=== PATIENT | male | born 1960 | race Hispanic/Latino ===

== ENCOUNTER 2016-12-01 08:23 | Day surgery (SDC) | payer OTHER ==
[2016-11-26 12:19] VITALS: BMI 33.0
[2016-12-01] MEDS ORDERED: ceFAZolin 1 gm FROZEN Premix 0 ML IVPB ONE (10:28)
[2016-12-01] MEDS ORDERED: ceFAZolin IV 2 gm in Dextrose 50 ML IVPB ONE (11:17)
[2016-12-01] MEDS ORDERED: Lactated Ringer's 1,000 ML IV ONE (11:25)
[2016-12-01] MEDS ORDERED: Midazolam 2 MG/2 ML VIAL ONE (11:26)
[2016-12-01] MEDS ORDERED: Propofol 10 mg/ml Inj (20 ML) ONE ×2 (11:26→11:46)
[2016-12-01] MEDS ORDERED: Lidocaine 1% Inj (20ml) ONE (11:39)
[2016-12-01] MEDS: Bupivacaine HCl 0.25% PF (10 ml) Inj ONE ×2 (11:46→11:59)
[2016-12-01] MEDS ORDERED: HYDROmorphone 0.5 mg/0.5 ml ISec IVP PRN (12:09)
[2016-12-01] MEDS ORDERED: Oxycodone/Acetaminophen 5/325 mg Tab PO PRN (13:23)
--- NOTE | 2016-12-01 13:27 | OP ---
PROCEDURE DATE: 12/01/2016 PREOPERATIVE DIAGNOSIS: Abdominal wall mass. POSTOPERATIVE DIAGNOSIS: Abdominal wall mass. PROCEDURE PERFORMED: Wide and deep excision of 5 cm abdominal wall mass with adjacent tissue transfe r closure. SURGEON: Yousuf Sainz MD ANESTHESIA: General. ESTIMATED BLOOD LOSS: 30 mL. POSTOPERATIVE CONDITION: Stable. INDICATIONS FOR SURGERY: This is a 56-year-old male, status post umbilical hernia repair 2 years ago , who now has developed inflammatory masses of his umbilicus which occasionally drain fluid. He has been treated with simple excision in the past, but they have returned. He now will undergo wide and deep excision of the masses. GROSS FINDINGS: The masses were noted to almost fill the umbilicus. An umbilectomy was performed an d underlying was what appeared to be remnants of suture granuloma and suture material was removed. PROCEDURE: The patient taken to the operating room. General anesthesia administered and the abdomen was prepped and draped. Elliptical incision was made surrounding the umbilicus. It was dissected f ree to the fascial layer and removed. The underlying suture material was also dissected free and rem [place]. The resulting hernia was repaired with heavy Monocryl. A preperitoneal blood vessel which was bleeding was repaired and the wound was irrigated with copious amounts of saline solution. Generous tissue flaps were raised and a greater than 30 square cm adjacent tissue transfer closure was perfor med with multiple layers of Monocryl, subcuticular Monocryl, and skin clips. The patient tolerated p rocedure well, returned to recovery room in stable condition. Yousuf Sainz MD cc: [id number] TT: 12/01/2016 13:27:20 en
[2016-12-01 13:29] VITALS: RESP 18
[2016-12-01 13:55] VITALS: BP 148/84; PULSE 76; TEMP 98; O2SAT 98
== END 2016-12-01 13:50 | disposition home or self-care (01) ==
LOC: C.SDS 08:23
PROVIDERS: ATTEND Surgery
DX: L02.211 Cutaneous abscess of abdominal wall (principal); T81.89XA Other complications of procedures, not elsewhere classified, initial encounter
CPT/HCPCS: 49250; 88307; 88342; J0690; J1170; J1885; J2250; J2405; J2704; J3010; J7120

== ENCOUNTER 2016-12-02 18:47 | Emergency (ER) | payer OTHER ==
[2016-12-02 18:47] VITALS: BMI 33.0
--- NOTE | 2016-12-02 19:54 | C.PDOC ---
History Of Present Illness 56 y/o male presents to ED for wound check s/p hernia repair yesterday by Dr. Sainz. Patient presents with c/o bleeding and some discomfort at surgical site. Denies fever, chills, nausea, vomiting. Time Seen by Provider: 12/02/16 19:53 Chief Complaint (Nursing): Abnormal Skin Integrity History Per: Patient History/Exam Limitations: no limitations Onset/Duration Of Symptoms: Days Current Symptoms Are (Timing): Still Present Location Of Injury: Anterior: Abdomen Quality Of Symptoms: Painful, Draining Pain Scale Rating Of: 4 Recent travel outside of the [place]: No Past Medical History Reviewed: Historical Data, Nursing Documentation, Vital Signs Vital Signs: Last Vital Signs Temp 98.8 F 12/02/16 19:22 Pulse 72 12/02/16 19:22 Resp 20 12/02/16 19:22 BP 172/100 H 12/02/16 19:22 Pulse Ox 97 12/02/16 20:22 - Medical History PMH: Colonic Polyps, Depression, Hypercholesterolemia Surgical History: Endoscopy - [facility] Procedures ABD WALL KATY REPAIR NEC (02/01/15) OTH LYSIS-PERITONEAL ADHES (02/01/15) Family History: States: Unknown Family Hx - Social History Hx Alcohol Use: Yes Hx Substance Use: No - Immunization History Hx Tetanus Toxoid Vaccination: No Hx Influenza Vaccination: No Hx Pneumococcal Vaccination: No Review Of Systems Constitutional: Negative for: Fever, Chills Gastrointestinal: Negative for: Nausea, Vomiting, Diarrhea Skin: Positive for: Other (drainage/discomfort at surgical site ). Negative for : Rash Physical Exam - Physical Exam Appears: Non-toxic, No Acute Distress Skin: Warm, Dry Chest: Symmetrical Cardiovascular: Rhythm Regular Respiratory: No Rales, No Rhonchi, No Wheezing Gastrointestinal/Abdominal: Soft, No Distention, No Guarding, No Rebound, Other (jeanie in place, good bowel sounds) Extremity: Normal ROM, Capillary Refill (< 2 sec. ) Neurological/Psych: Oriented x3, Normal Speech, Normal Cognition ED Course And Treatment - Laboratory Results Result Diagrams: 12/02/16 21:43 12/02/16 21:43 O2 Sat by Pulse Oximetry: 97 Pulse Ox Interpretation: Normal Progress Note: spoke with dr sainz. placed pressure dressing with gelfoam. will see the pt in the office in am. no bleeding seen afte the wound pressure dressing applied Disposition Discussed With : Yousuf Sainz Comment: will see the pt in his office on 12/03/16 10AM Doctor Will See Patient In The: Office Counseled Patient/Family Regarding: Studies Performed, Diagnosis, Need For Followup - Disposition Disposition: HOME/ ROUTINE Disposition Time: 19:54 Condition: FAIR Instructions: Acute Wound Care (ED) - Clinical Impression Clinical Impression: Visit for wound check - Scribe Statement The provider has reviewed the documentation as recorded by the Christine [place] Provider Scribe Attestation: All medical record entries made by the Christine were at my direction and personally dictated by me. I have reviewed the chart and agree that the record accurately reflects my personal performance of the history, physical exam, medical decision making, and the department course for this patient. I have also personally directed, reviewed, and agree with the discharge instructions and disposition.
[2016-12-02] MEDS ORDERED: Oxycodone/Acetaminophen 5/325 mg Tab ONE (21:12)
[2016-12-02] MEDS ORDERED: Absorbable Gelatin Sponge Size 12-7 ONE (21:24)
[2016-12-02] MEDS ORDERED: Oxycodone/Acetaminophen 5/325 mg Tab PO STA (21:49)
[2016-12-02 21:56] LABS: BASO % 0.6 % (0.0-2.0); EOS # 0.4 K/uL (0.0-0.7); EOS % 7.4 % (0.0-4.0); HEMATOCRIT 39.6 % (35.0-51.0); LYMPH # 1.3 K/uL (1.0-4.3); LYMPH % 24.7 % (20.0-40.0); MEAN CELL VOLUME 102.9 fL (80.0-94.0); MEAN CORPUSCULAR HEMOGLOBIN 34.9 pg (27.0-31.0); MEAN CORPUSCULAR HGB CONC 33.9 g/dL (33.0-37.0); MEAN PLATELET VOLUME 8.6 fL (7.2-11.7); MONO # 0.7 K/uL (0.0-0.8); MONO % 12.4 % (0.0-10.0); RED CELL DISTRIBUTION WIDTH 12.7 % (11.5-14.5); WHITE BLOOD COUNT 5.4 K/uL (4.8-10.8)
[2016-12-02 21:59] LABS: CHLORIDE 99 mmol/L (98-107)
[2016-12-02 22:00] LABS: POTASSIUM 3.8 mmol/L (3.6-5.2); SODIUM 138 mmol/L (132-148)
[2016-12-02 22:03] LABS: BLOOD UREA NITROGEN 18 mg/dL (9-20); CALCIUM 8.4 mg/dl (8.6-10.4); CARBON DIOXIDE 30 mmol/L (22-30); GFR AFRICAN-AMERICAN > 60; GLUCOSE,RANDOM 102 mg/dL (75-110)
[2016-12-02 22:43] VITALS: BP 138/79; PULSE 69; RESP 18; TEMP 98.6; O2SAT 96
== END 2016-12-02 23:30 | disposition home or self-care (01) ==
LOC: C.ER 18:47
DX: Z48.01 Encounter for change or removal of surgical wound dressing (principal)